=== PATIENT | male | born 1955 | race American Indian/Alaskan Native ===

== ENCOUNTER 2017-03-05 11:03 | Emergency (ER) | payer BC | END 2017-03-05 11:10 | disposition left against medical advice (07) | LOC: ED 11:03 | DX: M79.605 Pain in left leg (principal); Z53.21 Procedure and treatment not carried out due to patient leaving prior to being seen by health care provider ==

== ENCOUNTER 2021-06-03 13:33 | Emergency (ER) | payer SELFPAY ==
--- NOTE | 2021-06-03 16:27 | Emergency Department Report ---
<WALLACE MEHTA Deon - Last Filed: 06/03/21 16:22> ED General Adult HPI - General Chief complaint: Back Pain/Injury Stated complaint: BACK PAIN Source: EMS Mode of arrival: Stretcher Limitations: No Limitations - History of Present Illness Initial comments: 65-year-old male presents to the ED complaining generalized body pain . Patient states that he is in constant pain which has caused him to lose weight and not be able to eat. Patient states that he has been seen in [facility] and told that he needs to have back surgery. Patient states that surgery is scheduled for a month . Patient states pain is a 10 out of 10. Patient is alert and oriented x3. No acute distress noted. Patient is is not providing medical history at present time due to pain. Severity scale (0 -10): 10 Associated Symptoms: loss of appetite, malaise, nausea/vomiting - Related Data Previous Rx's Medication Instructions Recorded Last Taken Type Celecoxib [celeBREX] 200 mg PO BID 7 Days #14 cap 06/03/21 Unknown Rx Lidocaine [Lidocaine Pain Relief] 1 each TP 4XD 5 Days #20 patch 06/03/21 Unknown Rx predniSONE [Deltasone] 20 mg PO BID 7 Days #14 tab 06/03/21 Unknown Rx Allergies Allergy/AdvReac Type Severity Reaction Status Date / Time No Known Allergies Allergy Verified 06/03/21 15:53 ED Past Medical Hx - Past Medical History Hx Hypertension: Yes Hx Diabetes: Yes Additional medical history: anxiety - Social History Smoking Status: Never Smoker Substance Use Type: Alcohol - Medications Home Medications: Home Medications Medication Instructions Recorded Confirmed Last Taken Type Celecoxib [celeBREX] 200 mg PO BID 7 Days #14 cap 06/03/21 Unknown Rx Lidocaine [Lidocaine Pain Relief] 1 each TP 4XD 5 Days #20 patch 06/03/21 Unknown Rx predniSONE [Deltasone] 20 mg PO BID 7 Days #14 tab 06/03/21 Unknown Rx ED Physical Exam - General Limitations: No Limitations ED Disposition Clinical Impression: Acute exacerbation of chronic low back pain, Sciatica Disposition: 01 HOME / SELF CARE / HOMELESS Instructions: Radicular Pain, Sciatica, What You Need to Know About Chronic Back Pain, Diagnostic Diskogram, Care After, Acute Back Pain, Adult, Sciatica, [id number], Pain Medicine Instructions, [id number], Chronic Back Pain Prescriptions: Celecoxib [celeBREX] 200 mg PO BID 7 Days #14 cap predniSONE [Deltasone] 20 mg PO BID 7 Days #14 tab Lidocaine [Lidocaine Pain Relief] 1 each TP 4XD 5 Days #20 patch <ADEBAYO PARRA - Last Filed: 06/03/21 19:01> ED Review of Systems ROS: Stated complaint: BACK PAIN Other details as noted in HPI ED Course Vital Signs 06/03/21 06/03/21 13:52 15:52 Temperature 98.5 F 98.0 F Pulse Rate 96 H 74 Respiratory 16 18 Rate Blood Pressure 170/96 128/78 [Left] O2 Sat by Pulse 96 99 Oximetry ED Medical Decision Making - Lab Data Result diagrams: 06/03/21 18:15 06/03/21 18:15 Critical care attestation.: If time is entered above; I have spent that time in minutes in the direct care of this critically ill patient, excluding procedure time. ED Disposition Is pt being admited?: No Does the pt Need Aspirin: No
[2021-06-03] MEDS ORDERED: MORPHINE 4 MG/1 ML INJ IV ONE (17:09)
[2021-06-03] MEDS ORDERED: ONDANSETRON 4 MG/2 ML INJ IV ONE (17:09)
[2021-06-03] MEDS ORDERED: SODIUM CHLORIDE 0.9% 500 ML 500 ML IV ONE (17:10)
[2021-06-03] MEDS ORDERED: KETOROLAC 30 MG/1 ML INJ IV ONE (17:10)
[2021-06-03 18:27] LABS: Basophils % (Auto) 0.9 % (0.0-1.8); Eosinophils # (Auto) 0.1 K/mm3 (0.0-0.4); Eosinophils % (Auto) 1.1 % (0.0-4.3); Hematocrit 39.6 % (35.5-45.6); Hemoglobin 13.6 gm/dl (11.8-15.2); Lymphocytes # (Auto) 1.6 K/mm3 (1.2-5.4); Lymphocytes % (Auto) 35.9 % (13.4-35.0); Mean Corpuscular HGB Conc 34 % (32-34); Mean Corpuscular Volume 88 fl (84-94); Monocytes # (Auto) 0.4 K/mm3 (0.0-0.8); Monocytes % (Auto) 8.4 % (0.0-7.3); Platelet Count 249 K/mm3 (140-440); Red Blood Count 4.48 M/mm3 (3.65-5.03); Red Cell Distribution Width 13.8 % (13.2-15.2)
--- NOTE | 2021-06-03 18:33 | Cat Scan Report ---
CT LUMBAR SPINE: 06/03/2021 INDICATION / CLINICAL INFORMATION: severe pain hx of lumbar disc. COMPARISON: None available. FINDINGS: CT images of the lumbar spine were obtained. Images are evaluated in the axial, coronal, and sagittal planes. There is no evidence of acute abnormality. There is no evidence of fracture or dislocation. LEVEL BY LEVEL ANALYSIS: L5-S1: Mild diffuse disc bulging. L4-5: Grade 1 anterolisthesis associated with prominent facet degenerative changes and moderate diffu se disc bulging. Moderate central canal narrowing is present associated with bilateral foraminal encr oachment. L3-4: Minimal diffuse disc bulging. L2-3: Mild diffuse disc bulging. L1-2: Minimal diffuse disc bulging. PARASPINAL STRUCTURES: Unremarkable. IMPRESSION: No acute abnormality. Degenerative changes as detailed above, including severe bilateral foraminal narrowing at L4-[address] scans at this location are performed using dose reduction to ALARA by means of automated expos ure control. Signer Name: Arpit Ramos MD Signed: 06/03/2021 6:28 PM Workstation Name: [id number]
[2021-06-03 18:49] LABS: Alanine Aminotransferase 7 units/L (7-56); Albumin 3.8 g/dL (3.9-5); Blood Urea Nitrogen 12 mg/dL (9-20); Calcium 9.3 mg/dL (8.4-10.2); Hemolysis Index 5
[2021-06-03 18:50] LABS: BUN/Creatinine Ratio 20
[2021-06-03 19:20] VITALS: BP 142/86
== END 2021-06-03 19:57 | disposition home or self-care (01) ==
LOC: ED 13:33
DX: E11.9 Type 2 diabetes mellitus without complications (principal); Z79.899 Other long term (current) drug therapy
CPT/HCPCS: 36415; 72131; 80053; 85025; 96361; 96374; 96375; 99284; J1885; J2270; J2405; J7040